=== PATIENT | female | born 1975 | race Hispanic/Latino ===

== ENCOUNTER 2018-03-08 01:35 | Inpatient (IN) | payer BC ==
--- NOTE | 2018-03-08 02:22 | ED PDOC ---
HPI: Abdomen Time Seen by Provider: 03/08/18 02:01 Chief Complaint (Nursing): Abdominal Pain Chief Complaint (Provider): lower abdominal pain History Per: Patient History/Exam Limitations: no limitations Onset/Duration Of Symptoms: Hrs (x3) Current Symptoms Are (Timing): Still Present Associated Symptoms: Nausea. denies: Fever, Chills, Vomiting Last Bowel Movement: Today Additional Complaint(s): Solange Ellis is a 42 year old female, with no significant past medical history, who presents to the emergency department for evaluation of a sudden onset of lower abdominal pain at 23:00 and gradually worsening abdominal distention associated with nausea. Patient reports a normal bowel movement and urinated normally once earlier today. She denies any vomiting, fever or chills. No further medical complaints. Patient is currently menstruating. No abdominal surgeries. PMD: [place] Past Medical History Reviewed: Historical Data, Nursing Documentation, Vital Signs Vital Signs: Last Vital Signs Temp 97.8 F 03/08/18 02:01 Pulse 71 03/08/18 02:01 Resp 16 03/08/18 02:01 BP 176/83 H 03/08/18 02:01 Pulse Ox 100 03/08/18 02:01 - Medical History PMH: No Chronic Diseases - Surgical History Surgical History: No Surg Hx - Family History Family History: States: Unknown Family Hx - Home Medications Home Medications: Ambulatory Orders Medication Instructions Recorded RX: No Known Home Med 03/08/18 - Allergies Allergies/Adverse Reactions: Allergies Allergy/AdvReac Type Severity Reaction Status Date / Time levofloxacin [From Levaquin] Allergy ANAPHYLAXIS Verified 03/08/18 02:05 Review of Systems ROS Statement: Except As Marked, All Systems Reviewed And Found Negative Constitutional: Negative for: Fever, Chills Gastrointestinal: Positive for: Nausea, Abdominal Pain, Other (distention). Negative for: Vomiting Physical Exam - Reviewed Nursing Documentation Reviewed: Yes Vital Signs Reviewed: Yes - Physical Exam Appears: Positive for: No Acute Distress Head Exam: Positive for: ATRAUMATIC, NORMAL INSPECTION, NORMOCEPHALIC Skin: Positive for: Normal Color, Warm, Dry Eye Exam: Positive for: Normal appearance, EOMI, PERRL Neck: Positive for: Painless ROM Cardiovascular/Chest: Positive for: Regular Rate, Rhythm. Negative for: Murmur Respiratory: Positive for: Normal Breath Sounds. Negative for: Respiratory Distress Gastrointestinal/Abdominal: Positive for: Tenderness (suprapubic), Distended (palpable bladder) Back: Positive for: Normal Inspection. Negative for: L CVA Tenderness, R CVA Tenderness, Vertebral Tenderness Extremity: Positive for: Normal ROM (upper and lower extremities). Negative for: Deformity, Swelling Neurologic/Psych: Positive for: Alert, Oriented, Gait (steady) - Laboratory Results Result Diagrams: 03/08/18 02:49 03/08/18 02:49 - ECG O2 Sat by Pulse Oximetry: 100 (RA) Pulse Ox Interpretation: Normal Medical Decision Making Medical Decision Making: Time: 02:01 A/P: 42 y/o female with urinary retention from unknown cause. Bedside US showed significant amount of urine in bladder or large fluid filled structure. Asking patient to remove tampon and void in bathroom, if unable to, consider straight catheter and blood work. Initial Plan: --Reevaluation --BMP --Urine --CBC --Toradol 15 mg IVP --Urinalysis 07:00 -Patient will be signed out to Dr. Moses Scribe Attestation: Documented by Michel Simms, acting as a scribe for Fredi Dover MD. Provider Scribe Attestation: All medical record entries made by the Scribe were at my direction and personally dictated by me. I have reviewed the chart and agree that the record accurately reflects my personal performance of the history, physical exam, medical decision making, and the department course for this patient. I have also personally directed, reviewed, and agree with the discharge instructions and disposition. Disposition - Clinical Impression Clinical Impression: Hydrosalpinx - Patient ED Disposition Is Patient to be Admitted: Transfer of Care - Disposition Disposition: Transfer of Care Disposition Time: 07:00 Condition: FAIR Patient Signed Over To: Byron Moses Handoff Comments: pending CT result and re-cory
[2018-03-08 03:26] LABS: HEMOGLOBIN 12.9 g/dL (12.0-16.0); MEAN CELL VOLUME 92.2 fl (81.0-99.0); MEAN CORPUSCULAR HEMOGLOBIN 31.5 pg (27.0-31.0); MEAN CORPUSCULAR HGB CONC 34.2 g/dL (33.0-37.0); RBC 4.09 Mil/uL (3.80-5.20); RED CELL DISTRIBUTION WIDTH 12.7 % (11.5-14.5); WHITE BLOOD COUNT 11.6 K/uL (4.8-10.8)
[2018-03-08 03:28] LABS: SQUAMOUS EPITHIAL 1 /hpf (0-5); URINE BILIRUBIN NEGATIVE (NEGATIVE); URINE BLOOD NEGATIVE (NEGATIVE); URINE CLARITY SLIGHTY-CLOUDY (Clear); URINE COLOR YELLOW (YELLOW); URINE GLUCOSE (UA) NEG (Normal); URINE LEUKOCYTE ESTERASE NEG Leu/uL (Negative); URINE PROTEIN NEGATIVE (NEGATIVE); URINE UROBILINOGEN 0.2-1.0 mg/dL (0.2-1.0)
[2018-03-08 03:30] LABS: BLOOD UREA NITROGEN 21 mg/dl (7-17); CALCIUM 9.2 mg/dL (8.4-10.2); GFR NON-AFRICAN AMERICAN > 60
[2018-03-08] MEDS ORDERED: Sodium Chloride 0.9% 50 ML IV ONE (05:50)
[2018-03-08] MEDS ORDERED: Iohexol 300 100 ML IJ ONE (05:50)
--- NOTE | 2018-03-08 07:32 | ED PDOC ---
- Laboratory Results Result Diagrams: 03/08/18 02:49 03/08/18 02:49 - ECG O2 Sat by Pulse Oximetry: 100 (RA) Pulse Ox Interpretation: Normal Medical Decision Making Medical Decision Makin:00 --Care endorsed to me by Dr. Dover Disposition Discussed With DrGomez: James Tony - Clinical Impression Clinical Impression: Hydrosalpinx - POA Present On Arrival: None - Disposition Disposition: Admitted as In-Patient Disposition Time: 12:56 Condition: FAIR Forms: [facility] (Hebrew)
--- NOTE | 2018-03-08 12:06 | US ---
Date of service: 03/08/2018 HISTORY: hydrosalpinx on CT COMPARISON: CT scan same day. TECHNIQUE: Real-time transabdominal and transvaginal ultrasound examination of the pelvis was performed. FINDINGS: UTERUS: Measures 7.3 x 5.1 x 5 cm. Normal in size and appearance. No fibroid or other mass lesion seen. ENDOMETRIUM: Measures 11 mm in diameter. Unremarkable. CERVIX: No cervical abnormality identified. RIGHT OVARY: Measures 2.9 x 2.4 x 2.4 cm. No solid mass. Normal flow. LEFT OVARY: There is a very large septated nonspecific left adnexal cyst measuring 13.7 x 12.5 x 13 centimeters. Internal echoes and septation are noted. Small amount of adjacent fluid is appreciated. There is normal Doppler flow in the peripheral portion of the anomaly. Finding may reflect a large left adnexal cystic neoplasm, extremely large endometrioma, and/or less likely dilated and infected hydrosalpinx but should be correlated clinically. MRI may prove helpful for further evaluation. FREE FLUID: Small amount of fluid in the pelvis. OTHER FINDINGS: None. IMPRESSION: Large complex septated cystic mass in the left adnexa. Differential would include left ovarian neoplasm, endometrioma, and/or less likely large dilated hydrosalpinx. Gynecologic consultation and laparoscopic evaluation would be suggested.
--- NOTE | 2018-03-08 13:10 | CT ---
Date of service: 03/08/2018 PROCEDURE: CT Abdomen and Pelvis with contrast HISTORY: lower abd pain, urinary retention COMPARISON: None. TECHNIQUE: Contrast dose: 95 mL Radiation dose: Total exam DLP = 436 mGy-cm. This CT exam was performed using one or more of the following dose reduction techniques: Automated exposure control, adjustment of the mA and/or kV according to patient size, and/or use of iterative reconstruction technique. FINDINGS: LOWER THORAX: Unremarkable. LIVER: Mild diffuse fatty infiltration of the liver. There is evidence of a tiny subcentimeter subcapsular area of low density on axial image 25 series 3 consistent with small hepatic cysts. Just inferior to this region in the peripheral right lobe of the liver is some mild heterogeneous enhancement this is seen on axial images 16 and 17 series 2 and coronal images 33 through 38. There is also a focal area of enhancement or vascularity in the a right lobe of the liver on axial image 18 and coronal image 30. Finding may be related to some differential areas of profusion. The focal area of enhancement could be related to small subtle vascular anomaly. Finding probably does not represent hemangioma. There is additionally a tiny amount of hypodensity noted on coronal image 42 in this same region. No intrahepatic ductal dilatation is noted. GALLBLADDER AND BILE DUCTS: Unremarkable. PANCREAS: Unremarkable. No gross lesion or ductal dilatation. SPLEEN: Unremarkable. ADRENALS: Unremarkable. No mass. KIDNEYS AND URETERS: Unremarkable. No hydronephrosis. No solid mass. VASCULATURE: Unremarkable. No aortic aneurysm. BOWEL: Unremarkable. No obstruction. No gross mural thickening. APPENDIX: Normal appendix. PERITONEUM: There is a small amount of nonspecific fluid identified in the lower pelvis. No free air is identified. LYMPH NODES: Unremarkable. No enlarged lymph nodes. BLADDER: Tiny amounts of air are identified within the bladder possibly related to recent instrumentation. REPRODUCTIVE: Noted within the left adnexal region and extending superior to the bladder is evidence of a large low-density cystic mass with some septations. Small amount of probable peripheral ovarian tissue is suspected. Differential would include left ovarian neoplasm. Very large hydrosalpinx is not excluded. Please see ultrasound report of same day. Uterus is normal in size but displaced by the large cystic pelvic structure. A possible tiny low-density lower uterine segment fibroid is not excluded but was not as well seen on the ultrasound. Right ovary is probably normal in size and echogenicity in the lower pelvis. BONES: No acute fracture. OTHER FINDINGS: None. IMPRESSION: Large low-density septated low cystic pelvic structure, more than likely extending from the left adnexa. Differential would include large left ovarian neoplasm or extremely dilated fallopian tube. Endometrioma is also not excluded. Please see ultrasound report of same day. Gynecologic evaluation and laparoscopic evaluation would be suggested.
[2018-03-08 14:31] VITALS: BP 111/73; PULSE 77; RESP 18; TEMP 97.9
[2018-03-08 22:54] VITALS: O2SAT 100
--- NOTE | 2018-03-09 08:57 | CP.PCM.CON ---
History of Present Illness - History of Present Illness History of Present Illness: 42-year-old female presented to emergency department complaining of sudden onset acute abdominal and pelvic pain. Patient reports feeling sudden sharp pain and pressure in pelvis that has worsened. Patient received multiple doses of pain medication while in emergency department. Patient reports, at this time, discomfort is tolerable. Patient had a CT done as well as pelvic ultrasound. Patient found to have 13 x 12 x 13 cm mass in the pelvis. Described as possibly hydrosalpinx or possibly ovarian cyst or neoplasm. I discussed these findings with patient and discussed with patient and all possible causes of this finding. I discussed with patient the need for surgery. I discussed with patient the general risks, benefits, alternatives of surgery to remove this pelvic mass. All patient questions answered. Past Patient History - Past Social History Smoking Status: Never Smoked - PSYCHIATRIC Hx Substance Use: No - SURGICAL HISTORY Hx Surgeries: No - ANESTHESIA Hx Anesthesia: No Meds Allergies/Adverse Reactions: Allergies Allergy/AdvReac Type Severity Reaction Status Date / Time levofloxacin [From Levaquin] Allergy ANAPHYLAXIS Verified 03/08/18 02:05 Physical Exam - Eye Exam Eye Exam: Normal appearance - ENT Exam ENT Exam: Mucous Membranes Moist - Respiratory Exam Respiratory Exam: NORMAL BREATHING PATTERN - Cardiovascular Exam Cardiovascular Exam: REGULAR RHYTHM - GI/Abdominal Exam Additional comments: Mass palpable in lower abdomen and pelvis. Mass extends to umbilicus. Mass appears mobile and only slightly tender. No rebound, no guarding - Extremities Exam Extremities exam: Positive for: normal inspection. Negative for: calf tenderness, pedal edema - Neurological Exam Neurological exam: Alert, Oriented x3 - Psychiatric Exam Psychiatric exam: Normal Affect, Normal Mood Results - Vital Signs Recent Vital Signs: Last Vital Signs Temp 97.9 F 03/08/18 14:05 Pulse 77 03/08/18 14:05 Resp 18 03/08/18 14:05 BP 111/73 03/08/18 14:05 Pulse Ox 100 03/08/18 22:54 - Labs Result Diagrams: 03/08/18 02:49 03/08/18 02:49 - Imaging and Cardiology CT scan - pelvis Status: Report reviewed by me CT scan - abdomen Status: Report reviewed by me US - abdomen Status: Image reviewed by me, Report reviewed by me Assessment & Plan - Assessment and Plan (Free Text) Assessment: acuteAbdominal pain, pelvic mass possible hydrosalpinx possible ovarian cyst or neoplasm. Plan: Patient was consented for laparotomy, removal of pelvic mass. Anesthesia and or team was notified. After consent obtained, patient reports wanting to leave the hospital AGAINST MEDICAL ADVICE. 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 Patient states that she has called this facility and they are willing to evaluate and treat her. I discussed patient that I cannot discharge her from hospital due to her current medical condition. Patient states that she understands this but would rather leave and have procedure done at this facility that she works at. I discussed plan with patient and all patient questions answered. - Date & Time Date: 03/09/18 Time: 09:03
== END 2018-03-08 14:10 | disposition left against medical advice (07) | DRG 392 ==
LOC: H.ER 01:35 → H.ERHOLD 12:54
PROVIDERS: ADMIT Obstetrics & Gynecology; ATTEND Obstetrics & Gynecology
DX: R19.09 Other intra-abdominal and pelvic swelling, mass and lump (principal); N70.11 Chronic salpingitis